=== PATIENT | male | born 1995 | race Caucasian/White ===

== ENCOUNTER → 2020-01-26 09:09 | Outpatient (CLI) | payer BC, SELFPAY ==
--- NOTE | 2020-01-26 09:21 | XR_ITS ---
PROCEDURE: XR FOOT WT BEARING LT 3V CLINICAL INDICATION: pain COMPARISON: No exams were available for comparison FINDINGS: No fracture or dislocation. No lytic or blastic change. There is normal mineralization. The joint spaces are well-preserved. No significant degenerative/arthritic changes. No erosive changes evident. Other findings:None. IMPRESSION: No acute findings. Dictated by: Helio Velasco MD 01/27/2020 07:41 Electronically signed by Helio Velasco MD in [place] 01/27/2020 07:41
--- NOTE | 2020-01-26 09:21 | XR_ITS ---
PROCEDURE: XR FOOT WT BEARING RT 3V CLINICAL INDICATION: pain COMPARISON: No exams were available for comparison FINDINGS: No fracture or dislocation. No lytic or blastic change. There is normal mineralization. The joint spaces are well-preserved. No significant degenerative/arthritic changes. No erosive changes evident. Other findings:None. IMPRESSION: No acute findings. Dictated by: Helio Velasco MD 01/27/2020 07:40 Electronically signed by Helio Velasco MD in [place] 01/27/2020 07:40
== END ==
PROVIDERS: PCP Internal Medicine; Visit Provider Podiatrist
DX: M79.672 Pain in left foot (principal); M79.671 Pain in right foot
CPT/HCPCS: 73630

== ENCOUNTER 2021-08-10 16:44 | Emergency (ER) | payer BC, SELFPAY ==
[2021-08-10 17:22] VITALS: BP 143/76; PULSE 84; RESP 16; TEMP 36.6; O2SAT 99; BMI 34.9
--- NOTE | 2021-08-10 17:52 | HMH.EDUTC ---
[facility] Disposition Clinical Impression: Abscess Disposition: Home, Self-Care Condition on Discharge: Good Instructions: Boil, DI for Skin Abscess Additional Instructions: Apply cream on area inside left ear with your finger as directed wash hands before and after application *Start antibiotic(s) immediately and be sure to take as ordered for the FULL length of time although you may be feeling better or start to see improvement in the next 24-48 hours *Monitor closely. Outlined redness so that you can monitor easier. Follow up immediately for new or worsening symptoms including but not limited to redness, swelling, streaking from site fever or chills. *Warm compress 15 minutes 3-4 times day *Never squeeze or pop these on your own. Seek immediate medical attention next time this occurs *Monitor Temp. Tylenol every 4 hours as needed and ibuprofen every 6 hours as needed (as long as your primary care doctor has told you that it is ok to take both. For fever, aches, pain. ER if no less that 101 despite Tylenol and ibuprofen Follow up with your family doctor/primary care physician in the next 48-72 hours if no improvement Prescriptions: cephALEXin [cephALEXin 500mg capsule*] 500 mg PO Q8H 10 Days #30 cap Transmission Status: Received by [id number] Mupirocin Calcium [Mupirocin 2% Cream 15gm] 1 applicatio TP TID 10 Days #15 gm Transmission Status: Received by [id number] Referrals: Juan M Hebert MD [Primary Care Provider] - As needed Time of Disposition: 18:27 Medical Decision Making - Jaskaran Inquiry Pt receiving controlled substance: No Jaskaran was queried for this patient: No Vital Signs: 08/10/21 17:22 Temperature 98 F Temperature Source Oral Pulse Rate [Left] 84 Respiratory Rate 16 Blood Pressure [Right Arm] 143/76 H Blood Pressure Mean [Right Arm] 98 02 Sat by Pulse Oximetry 99 Medical Decision Narrative: raised area noted just inside left ear that opened and started draining with exam, culture obtained and sent to lab Medication discussed with pharmacy [facility] HPI - General Stated complaint: L ear pain Time Seen by Provider: 08/10/21 17:52 Mode of Arrival: Ambulatory Source of Information: Patient Limitations: No Limitations Description of Symptoms (Recalled from Triage Doc. by RN): pt c/o a L ear infection x2 days HEENT Symptoms (Recalled from RN notes): Yes Resp Symptoms (Recalled from RN notes): No Skin Symptoms (Recalled from RN notes): No MS Symptoms (Recalled from RN notes): No Functional Status (Recalled from RN notes): wnl - History of Present Illness Provider Complaint: Patient state that he has been having pain in his left ear that has continued to get worse over the last couple of days States that today pain was worse so he came in to get it checked out - Related Data Home Medications Medication Instructions Recorded Confirmed levothyroxine 50 mcg tablet 50 mcg PO tab 01/26/20 07/04/20 Previous Rx's Medication Instructions Recorded meloxicam 7.5 mg tablet 7.5 mg PO DAILY 30 Days #30 tab 03/22/20 Mupirocin Calcium [Mupirocin 2% 1 applicatio TP TID 10 Days #15 gm 08/10/21 Cream 15gm] cephALEXin [cephALEXin 500mg 500 mg PO Q8H 10 Days #30 cap 08/10/21 capsule*] Allergies Allergy/AdvReac Type Severity Reaction Status Date / Time No Known Allergies Allergy Verified 07/04/20 13:11 - Worker's Comp Is this a Worker's Comp case?: No [facility] History - Hepatitis A Screen Drug use history?: No High risk sexual behaviors?: No History of sexually transmitted infection?: No Currently employed?: No Childcare worker?: No Do you have indoor plumbing?: Yes Do you have electricity?: Yes Attestation statement:: This patient has been screened for Hepatitis A risk factors. Other Medical History: Reports: Hypothyroidism Other Surgeries: Yes: No Previous Surgery - Social History Smoking Status: Never smoker Alcohol Intake: current Alcohol Intake Frequency:: a few
[2021-08-10 18:35] VITALS: BP 143/76; PULSE 84; RESP 16; TEMP 36.6
== END 2021-08-10 18:36 | disposition home or self-care (01) ==
PROVIDERS: Emergency Provider Nurse Practitioner; PCP Family Medicine
DX: H60.02 Abscess of left external ear (principal)
CPT/HCPCS: 87070; 87077; 87186; 87205; 99202; G0463

== ENCOUNTER → 2022-02-28 17:13 | Outpatient (CLI) | payer BC, SELFPAY ==
[2022-02-28 19:07] LABS: Thyroid Stimulating Hormone 2.08 uIU/mL (0.465-4.68)
== END ==
PROVIDERS: PCP Internal Medicine; Visit Provider Internal Medicine
DX: E03.9 Hypothyroidism, unspecified (principal)
CPT/HCPCS: 84443

== ENCOUNTER 2024-11-10 12:35 | Outpatient (CLI) | payer BC, SELFPAY ==
[2024-11-10 17:30] LABS: Basophils # 0.1 K/mm3 (0-0.2); Basophils % 0.9 % (0.1-2.0); Eosinophils # 0.2 Kmm3 (0.0-0.4); Eosinophils % 1.7 % (0.1-12.0); Hematocrit 48.1 % (42.0-52.0); Hemoglobin 16.3 g/dL (14.1-18.0); Immature Granulocytes # 0.05 10^3uL; Immature Granulocytes % 0.5 %; Lymphocytes # 2.7 K/mm3 (0.7-4.5); Mean Corpuscular HGB Conc 33.9 g/dL (31.8-35.4); Mean Corpuscular Hemoglobin 28.2 pg (27.0-31.2); Mean Corpuscular Volume 83.2 fl (80-94); Mean Platelet Volume 10.7 fl (7.4-10.4); Monocytes # 0.9 K/mm3 (0.1-1.0); Monocytes % 9.4 % (1.7-9.3); Neutrophils # 5.4 K/mm3 (1.8-7.8); Neutrophils % 58.5 % (37.0-80.0); Nucleated Red Blood Cells # 0 10^3/uL; Nucleated Red Blood Cells % 0 %; Platelet Count 317 K/mm3 (142-424); Red Blood Count 5.78 M/mm3 (4.60-6.20); Red Cell Distribution Width 13.2 % (11.5-17.5); Red Cell Distribution Width-SD 39.7 fL; White Blood Count 9.3 K/mm3 (4.8-10.8)
[2024-11-10 18:09] LABS: Alanine Aminotransferase 67 U/L (12-78); Albumin Level 4.9 g/dl (3.5-5.0); Alkaline Phosphatase 107 U/L (38-126); Anion Gap 11.6 mEq/L (5-15); Aspartate Amino Transferase 50 U/L (17-59); Bilirubin,Total 0.8 mg/dl (0.2-1.3); Blood Urea Nitrogen 16 mg/dl (9-20); Calcium 9.5 mg/dl (8.4-10.2); Carbon Dioxide 25 mmol/L (22.0-30.0); Chloride 103 mmol/L (98-107); Chol/HDL Ratio 4.5 (1-3.5); Cholesterol 170 mg/dl (140-200); Estimated Glomerular Filt Rate 116 ml/min (>60); GFR (African American) 140 ML/MIN (>60); Globulin 2.5 g/dL (1.3-3.2); Glucose 73 mg/dl (74-100); HDL Cholesterol 38 mg/dl (40-60); Potassium 4.6 mmoL/L (3.5-5.1); Sodium 135 mmol/L (136-145); Total Protein,Serum 7.4 g/dl (6.3-8.2); Triglycerides 78 mg/dl (30-150); VLDL Cholesterol 16 mg/dL (0-40)
[2024-11-10 18:15] LABS: Hemoglobin A1C 5.3 % (4.0-6.0)
[2024-11-10 18:23] LABS: Direct LDL Cholesterol 112.48 mg/dL (100-129)
== END 2024-11-10 23:59 | disposition home or self-care (01) ==
LOC: LAB.DROPOF 11-12 12:35
PROVIDERS: PCP Internal Medicine; Visit Provider Internal Medicine
DX: E78.5 Hyperlipidemia, unspecified (principal); E66.811 Obesity, class 1; R03.0 Elevated blood-pressure reading, without diagnosis of hypertension; R81 Glycosuria; E03.9 Hypothyroidism, unspecified
CPT/HCPCS: 80053; 80061; 83036; 84443; 85025